=== PATIENT | male | born 1965 | race Caucasian/White ===

== ENCOUNTER 2020-10-27 10:13 | Emergency (ER) | payer BC ==
[2020-10-27] MEDS ORDERED: SODIUM CHLORIDE 0.9% 1,000 ML IV ONE (11:07)
[2020-10-27] MEDS ORDERED: BENZONATATE 100 MG CAP PO STA (11:07)
[2020-10-27] MEDS ORDERED: DEXAMETHASONE SOD PHOSPHATE 10 MG/ML 1 ML VIAL IV STA (11:07)
[2020-10-27] MEDS ORDERED: SODIUM CHLORIDE 0.9% 500 ML 500 ML IV ONE (11:07)
--- NOTE | 2020-10-27 11:10 | ED ---
General Adult HPI - General Chief complaint: Shortness of Breath Stated complaint: cough,SOB,COVID + Time Seen by Provider: 10/27/20 10:50 Source: patient, RN notes reviewed Mode of arrival: ambulatory Limitations: no limitations - History of Present Illness Initial comments: This a 55-year-old male presents emergency Department chief complaint of persi stent cough. Patient states he tested positive for covid 2 weeks ago. Patient states that he he still has persistent cough that is not resolving patient states it is worse with exertion. He does report shortness of breath associated with. No chest pain. Denies any recent fevers chills he did have that initially. No significant diarrhea constipation. Patient denies any prior cardiac or lung disease. - Related Data Home Medications Medication Instructions Recorded Confirmed Cholecalciferol [Vitamin D3 (25 50 mcg PO HS 10/27/20 10/27/20 Mcg = 1000 Iu)] FLUoxetine HCL [Sarafem] 20 mg PO HS 10/27/20 10/27/20 guaiFENesin [Mucinex] 600 mg PO BID PRN 10/27/20 10/27/20 Previous Rx's Medication Instructions Recorded Dexamethasone [Decadron] 6 mg PO ONCE #5 tablet 10/27/20 Allergies Allergy/AdvReac Type Severity Reaction Status Date / Time ibuprofen AdvReac can't take Verified 10/27/20 12:16 with prozac Review of Systems ROS Statement: Those systems with pertinent positive or pertinent negative responses have been documented in the HPI. ROS Other: All systems not noted in ROS Statement are negative. Past Medical History Past Medical History: No Reported History Additional Past Medical History / Comment(s): diverticulitis, colon perferation History of Any Multi-Drug Resistant Organisms: None Reported Past Surgical History: Hernia Repair Additional Past Surgical History / Comment(s): colon resection Past Psychological History: Anxiety, Panic Disorder Smoking Status: Never smoker Past Alcohol Use History: None Reported Past Drug Use History: None Reported General Exam Limitations: no limitations General appearance: alert, in no apparent distress Head exam: Present: atraumatic, normocephalic, normal inspection Eye exam: Present: normal appearance, PERRL, EOMI. Absent: scleral icterus, conjunctival injection, periorbital swelling ENT exam: Present: normal exam, normal oropharynx, mucous membranes moist, TM's normal bilaterally, normal external ear exam Neck exam: Present: normal inspection, full ROM. Absent: tenderness, meningismus, lymphadenopathy Respiratory exam: Present: normal lung sounds bilaterally. Absent: respiratory distress, wheezes, rales, rhonchi, stridor Cardiovascular Exam: Present: normal rhythm, tachycardia (Heart rate 134), normal heart sounds. Absent: regular rate, systolic murmur, diastolic murmur, rubs, gallop, clicks GI/Abdominal exam: Present: soft, normal bowel sounds. Absent: distended, tenderness, guarding, rebound, rigid Neurological exam: Present: alert, oriented X3 Skin exam: Present: warm, dry, intact, normal color. Absent: rash Course Vital Signs 10/27/20 10/27/20 10:35 12:35 Temperature 98.6 F Pulse Rate 134 H 96 Respiratory 20 18 Rate Blood Pressure 134/74 126/73 O2 Sat by Pulse 97 98 Oximetry Medical Decision Making - Medical Decision Making CT does not show any events of pulmonary wasn't labs are unremarkable. Patient does have still patchy areas of Covid pneumonia. Patient we discharged on steroids return parameters discussed. - Lab Data Result diagrams: 10/27/20 11:35 10/27/20 11:35 Lab Results 10/27/20 10/27/20 10/27/20 Range/Units 11:35 11:35 11:35 WBC 5.4 (3.8-10.6) k/uL RBC 5.30 (4.30-5.90) m/uL Hgb 15.6 (13.0-17.5) gm/dL Hct 45.5 (39.0-53.0) % MCV 85.7 (80.0-100.0) fL MCH 29.4 (25.0-35.0) pg MCHC 34.3 (31.0-37.0) g/dL RDW 12.4 (11.5-15.5) % Plt Count 146 L (150-450) k/uL MPV 8.4 Neutrophils % 82 % Lymphocytes % 7 % Monocytes % 9 % Eosinophils % 1 % Basophils % 1 % Neutrophils # 4.4 (1.3-7.7) k/uL Lymphocytes # 0.4 L (1.0-4.8) k/uL Monocytes # 0.5 (0-1.0) k/uL Eosinophils # 0.0 (0-0.7) k/uL Basophils # 0.0 (0-0.2) k/uL D-Dimer 0.75 H (<0.60) mg/L FEU Sodium 135 L (137-145) mmol/L Potassium 4.4 (3.5-5.1) mmol/L Chloride 100 (98-107) mmol/L Carbon Dioxide 28 (22-30) mmol/L Anion Gap 7 mmol/L BUN 12 (9-20) mg/dL Creatinine 0.75 (0.66-1.25) mg/dL Est GFR (CKD-EPI)AfAm >90 (>60 ml/min/1.73 sqM) Est GFR (CKD-EPI)NonAf >90 (>60 ml/min/1.73 sqM) Glucose 103 H (74-99) mg/dL Calcium 8.9 (8.4-10.2) mg/dL Magnesium 1.7 (1.6-2.3) mg/dL Total Bilirubin 0.6 (0.2-1.3) mg/dL AST 24 (17-59) U/L ALT 13 (4-49) U/L Alkaline Phosphatase 63 (38-126) U/L Troponin I (0.000-0.034) ng/mL Total Protein 6.9 (6.3-8.2) g/dL Albumin 3.8 (3.5-5.0) g/dL 10/27/20 Range/Units 11:35 WBC (3.8-10.6) k/uL RBC (4.30-5.90) m/uL Hgb (13.0-17.5) gm/dL Hct (39.0-53.0) % MCV (80.0-100.0) fL MCH (25.0-35.0) pg MCHC (31.0-37.0) g/dL RDW (11.5-15.5) % Plt Count (150-450) k/uL MPV Neutrophils % % Lymphocytes % % Monocytes % % Eosinophils % % Basophils % % Neutrophils # (1.3-7.7) k/uL Lymphocytes # (1.0-4.8) k/uL Monocytes # (0-1.0) k/uL Eosinophils # (0-0.7) k/uL Basophils # (0-0.2) k/uL D-Dimer (<0.60) mg/L FEU Sodium (137-145) mmol/L Potassium (3.5-5.1) mmol/L Chloride (98-107) mmol/L Carbon Dioxide (22-30) mmol/L Anion Gap mmol/L BUN (9-20) mg/dL Creatinine (0.66-1.25) mg/dL Est GFR (CKD-EPI)AfAm (>60 ml/min/1.73 sqM) Est GFR (CKD-EPI)NonAf (>60 ml/min/1.73 sqM) Glucose (74-99) mg/dL Calcium (8.4-10.2) mg/dL Magnesium (1.6-2.3) mg/dL Total Bilirubin (0.2-1.3) mg/dL AST (17-59) U/L ALT (4-49) U/L Alkaline Phosphatase (38-126) U/L Troponin I <0.012 (0.000-0.034) ng/mL Total Protein (6.3-8.2) g/dL Albumin (3.5-5.0) g/dL Disposition Clinical Impression: Pneumonia due to COVID-19 virus Disposition: HOME SELF-CARE Condition: Stable Instructions (If sedation given, give patient instructions): Coronavirus Disease 2019 (COVID-19) Additional Instructions: Please return to the Emergency Department if symptoms worsen or any other concerns. Prescriptions: Dexamethasone [Decadron] 6 mg PO ONCE #5 tablet Is patient prescribed a controlled substance at d/c from ED?: No Referrals: Nonstaff,Physician [Primary Care Provider] - 1-2 days Time of Disposition: 13:54
[2020-10-27 11:44] LABS: Basophils % (A) 1 %; Eosinophils % (A) 1 %; HCT 45.5 % (39.0-53.0); HGB 15.6 gm/dL (13.0-17.5); Lymphocytes # (A) 0.4 k/uL (1.0-4.8); Lymphocytes % (A) 7 %; MCH 29.4 pg (25.0-35.0); MCHC 34.3 g/dL (31.0-37.0); MCV 85.7 fL (80.0-100.0); Mean Platelet Volume 8.4; Monocytes # (A) 0.5 k/uL (0-1.0); Monocytes % (A) 9 %; Neutrophils # (A) 4.4 k/uL (1.3-7.7); Neutrophils % (A) 82 %; Platelet Count 146 k/uL (150-450); RDW 12.4 % (11.5-15.5); WBC 5.4 k/uL (3.8-10.6)
[2020-10-27 12:08] LABS: ALT 13 U/L (4-49); AST 24 U/L (17-59); African American GFR (CKD) >90 (>60 ml/min/1.73 sqM); Albumin 3.8 g/dL (3.5-5.0); Alkaline Phosphatase 63 U/L (38-126); Anion Gap 7 mmol/L; Blood Urea Nitrogen 12 mg/dL (9-20); Calcium 8.9 mg/dL (8.4-10.2); Carbon Dioxide 28 mmol/L (22-30); Chloride 100 mmol/L (98-107); Glucose 103 mg/dL (74-99); Magnesium 1.7 mg/dL (1.6-2.3); Non-African American GFR(CKD) >90 (>60 ml/min/1.73 sqM); Potassium 4.4 mmol/L (3.5-5.1); Sodium 135 mmol/L (137-145); Total Bilirubin 0.6 mg/dL (0.2-1.3); Total Protein 6.9 g/dL (6.3-8.2)
--- NOTE | 2020-10-27 12:21 | XR ---
EXAMINATION TYPE: XR chest 2V DATE OF EXAM: 10/27/2020 COMPARISON: None HISTORY: 55-year-old male with cough TECHNIQUE: PA and lateral views FINDINGS: The cardiomediastinal silhouette, aorta, and pulmonary vasculature are within normal limits.. Some nova btle patchy interstitial changes present bilaterally. No pleural effusion. IMPRESSION: Some subtle patchy interstitial changes bilaterally. Correlate to exclude early atypical/COVID pneumo aleksey.
[2020-10-27 12:38] VITALS: RESP 18
--- NOTE | 2020-10-27 13:42 | CT ---
EXAMINATION TYPE: CT chest angio for PE DATE OF EXAM: 10/27/2020 COMPARISON: Radiograph same day HISTORY: 55 year-old male shortness of breath TECHNIQUE: Contiguous axial scanning of the chest performed without and with IV Contrast, patient inj ected with 100 ml mL of Isovue 370. Delayed images through the kidneys were obtained. Coronal/sagitta l reconstructions performed. CT DLP: 357.1 mGycm Automated exposure control for dose reduction was used. FINDINGS: Heart normal size without pericardial effusion. No flattening of the interventricular septum. Borderline ectatic aortic root at 3.5 cm. Conventional arch vessel branching anatomy. Numerous scattered nonenlarged mediastinal lymph nodes. Suboptimal opacification of the pulmonary arterial system no large central or lobar branch embolus. M ost of the segmental and more distal arterial branches are nondiagnostic. Mild biapical pleural-parenchymal scarring. Peripheral patchy groundglass changes especially in the m id and lower lungs. No pleural effusion. There may be mild fold thickening along the gastric fundus and body. Bones: No osseous destructive process. Normal variant sternal foramen. IMPRESSION: 1. MILD PATCHY PERIPHERAL CHANGES OF COVID PNEUMONIA. 2. SUBOPTIMAL CONTRAST BOLUS. NO LARGE CENTRAL OR DEFINITE LOBAR BRANCH EMBOLUS. MANY OF THE SEGMENTA L AND MORE DISTAL ARTERIAL BRANCHES ARE NONDIAGNOSTIC AND EMBOLI IN THESE LOCATIONS CANNOT BE EXCLUDE D ON THE BASIS OF THIS EXAM. 3. APPEARANCE OF FOLD THICKENING OF THE GASTRIC FUNDUS AND BODY COULD BE FROM NONDISTENTION OR UNDERL JOVANNY GASTRITIS. CORRELATE WITH PATIENT'S SYMPTOMS.
[2020-10-27 14:32] VITALS: BP 134/81; PULSE 101; TEMP 98.1
== END 2020-10-27 14:30 | disposition home or self-care (01) ==
LOC: EC 10:13
DX: U07.1 COVID-19 (principal); J12.82 Pneumonia due to coronavirus disease 2019; F41.0 Panic disorder [episodic paroxysmal anxiety]; Z79.899 Other long term (current) drug therapy; Z88.6 Allergy status to analgesic agent
CPT/HCPCS: 36415; 93005; 85379; 80053; 83735; 84484; 85025; 71046; 71275; 99285; 96374; 96361 ×2; J1100; Q9967